=== PATIENT | female | born 1990 | race Caucasian/White ===

== ENCOUNTER 2024-06-19 08:43 | Day surgery (SDC) | payer OTHER ==
[~2024-06-19] VITALS: Ht 167.6 cm; Wt 107.2 kg
[~2024-06-19 08:43] MED LIST: ATEN50 PO; CLIN150 PO; Cephalexin500 MG PO; Lactated Ringer's 1,000 ML IV ONE; Lidocaine HCl/Pf 1% 5 ML VIAL ONE; METF500 PO; PENVK500 PO; PROP10 PO
[2024-06-19] MEDS ORDERED: propofoL 50 ML IV ONE (09:24)
[2024-06-19] MEDS ORDERED: Lactated Ringer's 1,000 ML IV ONE (09:29)
[2024-06-19 10:33] VITALS: BP 110/73
== END 2024-06-19 10:45 | disposition home or self-care (01) ==
LOC: ORSCSDS 08:43
PROVIDERS: Internal Medicine Gastroenterology
PROC: 0DBE8ZX Excision of Large Intestine, Via Natural or Artificial Opening Endoscopic, Diagnostic (ICD-10-PCS; principal; 2024-06-19 10:00)
PROC: 0DB58ZX Excision of Esophagus, Via Natural or Artificial Opening Endoscopic, Diagnostic (ICD-10-PCS; principal; 2024-06-19 10:00)
DX: R19.4 Change in bowel habit (principal); R10.11 Right upper quadrant pain; K21.9 Gastro-esophageal reflux disease without esophagitis; R13.10 Dysphagia, unspecified; R63.4 Abnormal weight loss; F84.0 Autistic disorder; I10 Essential (primary) hypertension; F43.10 Post-traumatic stress disorder, unspecified; E66.9 Obesity, unspecified; Z68.38 Body mass index [BMI] 38.0-38.9, adult; Z79.899 Other long term (current) drug therapy
CPT/HCPCS: 88305; J2003; J2704; J7120

== ENCOUNTER 2025-02-23 07:53 | Observation (INO) | payer OTHER ==
[2025-02-23] VITALS (13 sets, daily range): BP systolic 107–135; BP diastolic 59–86
[~2025-02-23] VITALS: Ht 165.1 cm; Wt 97.5 kg
[~2025-02-23 07:53] MED LIST changes: -Lactated Ringer's 1,000 ML IV ONE; -Lidocaine HCl/Pf 1% 5 ML VIAL ONE
[2025-02-23] MEDS ORDERED: Cetirizine HCl10 MG PO (08:47)
[2025-02-23] MEDS ORDERED: FERSU300 PO (08:48)
[2025-02-23] MEDS ORDERED: Prilosec Otc20 MG PO (08:48)
[2025-02-23] MEDS ORDERED: NS 1,000 ML IV SCH (09:00)
[2025-02-23] MEDS ORDERED: FentaNYL Citrate 50 MCG/ML 2 ML Injection IV ONE (09:00)
[2025-02-23 09:01] LABS: BASOPHILS ABSOLUTE AUTO 0.04 K/mm3 (0.00-0.23); BASOPHILS PERCENT AUTO 0 % (0-2); EOSINOPHILS ABSOLUTE AUTO 0.10 K/mm3 (0.00-0.68); EOSINOPHILS PERCENT AUTO 1 % (0-6); Hematocrit 41.6 % (33.0-51.0); Hemoglobin 14.5 g/dL (11.5-16.0); IMMATURE GRAN ABSOLUTE AUTO 0.05 K/mm3 (0.00-0.10); IMMATURE GRAN PERCENT AUTO 0 % (0-1); LYMPHOCYTES ABSOLUTE AUTO 1.53 K/mm3 (0.84-5.20); LYMPHOCYTES PERCENT AUTO 10 % (21-46); MONOCYTES ABSOLUTE AUTO 1.34 K/mm3 (0.16-1.47); MONOCYTES PERCENT AUTO 9 % (4-13); Mean Corpuscular HGB Conc 34.9 g/dL (31.5-36.5); Mean Corpuscular Volume 86 fL (80-100); NEUTROPHILS ABSOLUTE AUTO 12.59 K/mm3 (1.96-9.15); NEUTROPHILS PERCENT AUTO 80 % (41-73); NRBC ABSOLUTE 0.00 K/mm3 (0.00-0.02); NRBC Auto 0.0 /100 WBC (0.0-0.2); Platelet Count 172 K/mm3 (150-400); RDW Coefficient Variation 14.8 % (11.7-14.2); RDW Standard Deviation 46.2 fL (35.1-46.3)
[2025-02-23 09:26] LABS: Alanine Aminotransfer (ALT/SGP 41.0 U/L (12-78); Albumin, Blood 3.9 g/dL (3.4-5.0); Albumin/Globulin Ratio 1.2 (0.8-1.8); Anion Gap 10.0 mmol/L (3-11); Aspartate Aminotrans (AST/SGOT 25.0 U/L (12-37); Bilirubin, Total 0.6 mg/dL (0.1-1.0); Blood Urea Nitrogen 10.0 mg/dL (8-24); CO2, Blood 25.0 mmol/L (21-32); Calcium, Blood 9.1 mg/dL (8.5-10.1); Chloride, Blood 107.0 mmol/L (98-108); Creatinine, Blood 0.73 mg/dL (0.40-1.00); Globulin, Blood 3.3 g/dL (2.2-4.0); Glucose, Blood 121.0 mg/dL (70-99); Potassium, Blood 3.7 mmol/L (3.5-5.5); Sodium, Blood 138.0 mmol/L (136-145); Total Protein, Blood 7.2 g/dL (6.4-8.2)
[2025-02-23 09:39] LABS: Source, Urine Clean Catch
[2025-02-23 09:46] LABS: Bilirubin, Urine Neg (Neg); Color, Urine Yellow (P-Yellow); Glucose Qualitative, Urine Neg (Neg); Ketones, Urine Neg (Neg); Leukocyte Esterase, Urine 1+ (Neg); Protein, Urine 1+ (Neg); Specific Gravity, Urine 1.015 (1.003-1.022); Urobilinogen, Urine NORM (Normal)
[2025-02-23 10:09] LABS: Red Blood Cells, Urine 25-50 /hpf (0-2); White Blood Cells, Urine 0-2 /hpf (0-5)
[2025-02-23] MEDS ORDERED: Ondansetron HCl 2 MG / ML 2ML Vial IV PRN ×2 (11:05→12:15)
[2025-02-23] MEDS ORDERED: FLU VACC TS2025-26(6MOS UP)/PF 45 MCG/0.5 ML SYRINGE IM SCH (11:05)
[2025-02-23] MEDS ORDERED: Bupivacaine 0.5% HCl 5 MG/ML 30MLVIAL ONE (11:20)
[2025-02-23] MEDS ORDERED: FentaNYL Citrate 50 MCG/ML 2 ML Injection ONE (11:52)
[2025-02-23] MEDS ORDERED: Midazolam HCl 1MG / ML 2ML Vial ONE (11:53)
[2025-02-23] MEDS ORDERED: Metoclopramide HCl 5MG / ML 2ML Vial IV PRN (12:10)
[2025-02-23] MEDS ORDERED: HYDROmorphone HCl/Pf 1MG SYR IV PRN ×2 (12:10)
[2025-02-23] MEDS ORDERED: LevoFLOXacin 750 MG/D5W 150ML 150 ML IV ONE (12:10)
[2025-02-23] MEDS ORDERED: FentaNYL Citrate 50 MCG/ML 2 ML Injection IV PRN ×2 (12:10)
[2025-02-23] MEDS ORDERED: Albuterol 2.5 MG/3 ML VIAL INH PRN (12:10)
[2025-02-23] MEDS ORDERED: MetroNIDAZOLE 500MG/NS 100 ml 100 ML IV STA (12:11)
[2025-02-23] MEDS ORDERED: Ketorolac Tromethamine 30mg Vial ONE (12:16)
[2025-02-23] MEDS ORDERED: Dexamethasone Sod Phos 10 MG/ML 1ML VIAL ONE (12:17)
[2025-02-23] MEDS ORDERED: Ondansetron HCl 2 MG / ML 2ML Vial ONE (12:17)
[2025-02-23] MEDS ORDERED: Sugammadex Sodium 200 MG/2ML SDV (100 MG/ML) ONE (12:26)
[2025-02-23] MEDS ORDERED: HYDROcodone 5-APAP 325 TAB PO PRN (12:40)
--- NOTE | 2025-02-23 14:20 | NUR ---
ARRIVAL TO UNIT PT ARRIVED TO UNIT FROM PACU VIA GURNEY. A/XO4, SLID OVER USING SLIDER SHEET. SET UP W/ SNACKS. CALL LIGHT IN REACH AND EXPLAINED.
--- NOTE | 2025-02-23 16:56 | NUR ---
SHIFT SUMMARY POD 0 APPY PT IS A/OX4. TOLERATING PO INTAKE. DENIES N/V. PT IS IND IN ROOM AND VOIDING WELL. PAIN MANAGED PER EMAR. PT HAS 3 LAP SITES COVERED W/ GAUZE C/D/I. BED IN LOWEST POSITION, CALL LIGHT IN REACH.
--- NOTE | 2025-02-24 04:40 | NUR ---
SHIFT SUMMARY NO ACUTE EVENTS OVERNIGHT. PT LAP SITES CDI. PT TOLERATING PO FLUIDS AND MEDICATIONS. PT MEDICATED FOR PAIN/NAUSEA X1 DURING NOC SHIFT. PT AMBULATING IN HALLS MULTIPLE TIMES DURING SHIFT.
[2025-02-24 04:48] VITALS: BP 138/84
[2025-02-24 07:17] VITALS: BP 140/77
[2025-02-24] MEDS ORDERED: HYDR1TAB94 PO (09:11)
--- NOTE | 2025-02-24 09:39 | NUR ---
DISCHARGE SUMMARY POD 1 LAP APPY, LAP SITES x3, C/D/I. TOLERATING REGULAR DIET WELL. STATES NO PAIN. MILD DISTENTION, BOWEL TONES NORMOACTIVE. IND IN ROOM. IV DC'D. DISCHARGE INSTRUCTIONS REVIEWED & GIVEN. PAIN MED SCRIPT SENT. PT'D MOM TO TRANSPORT HER HOME, AWAITING ARRIVAL.
--- NOTE | 2025-02-24 10:24 | NUR ---
ESCORTED OUT VIA WC.
== END 2025-02-24 09:59 | disposition home or self-care (01) ==
LOC: ER 07:53 → SURS 07:54
PROVIDERS: Student in an Organized Health Care Education/Training Program; ADMIT Surgery
PROC: 0DTJ4ZZ Resection of Appendix, Percutaneous Endoscopic Approach (ICD-10-PCS; principal; 2025-02-23 10:15)
DX: D3A.8 Other benign neuroendocrine tumors (principal); K35.33 Acute appendicitis with perforation, localized peritonitis, and gangrene, with abscess; I10 Essential (primary) hypertension; Z88.1 Allergy status to other antibiotic agents; Z88.0 Allergy status to penicillin
CPT/HCPCS: 74177; 80053; 81001; 81025; 83690; 85025; 87086; 88304; 88341; 88342; 96361; 96374; 96375; 99285-25; A9270; G0378; J1100; J1885; J1956; J2250; J2405; J2704; J3010; J7030; Q9967